=== PATIENT | female | born 1940 | race Caucasian/White ===

== ENCOUNTER 2021-03-29 05:20 | Emergency (ER) | payer OTHER ==
[~2021-03-29] VITALS: Ht 167.6 cm; Wt 99.8 kg
[2021-03-29 05:42] LABS: ABSOLUTE BASOPHILS 0.1 thou/uL (0.0-0.2); ABSOLUTE EOSINOPHILS 0.3 thou/uL (0.0-0.7); ABSOLUTE MONOCYTES 0.8 thou/uL (0.0-1.2); ABSOLUTE NEUTROPHILS 7.3 thou/uL (1.6-8.1); BASOPHILS 0.6 %; EOSINOPHILS 2.3 %; HEMATOCRIT 41.5 % (37.0-47.0); HEMOGLOBIN 13.7 gm/dL (12.0-15.0); LYMPHOCYTES 26.5 %; MCH 30.9 pg (26.0-34.0); MCHC 32.9 g/dL (28.0-37.0); MCV 93.6 fL (80.0-100.0); MONOCYTES 7.3 %; MPV 7.5 fl. (7.2-11.1); NUCLEATED RBCS 0 /100WBC; PLATELET COUNT* 265 thou/uL (150-400); POLYS 63.3 %; RBC 4.43 mil/uL (4.20-5.00); RDW-CV 12.9 % (10.5-14.5); WBC 11.5 thou/uL (4.0-11.0)
[2021-03-29] MEDS ORDERED: ATENOLOL 25 MG25 M1 PO (05:49)
[2021-03-29] MEDS ORDERED: COZAAR 25 MG TA25 M1 PO (05:49)
[2021-03-29 05:50] LABS: CALCIUM 8.9 mg/dL (8.5-10.1); POTASSIUM 3.8 mmol/L (3.5-5.1)
[2021-03-29] MEDS ORDERED: DESVENLAFAXINE50 MG PO (05:50)
[2021-03-29] MEDS ORDERED: KLOR-CON 1010 MEQ PO (05:50)
[2021-03-29] MEDS ORDERED: FAMOTIDINE 40 M40 M1 PO (05:51)
[2021-03-29] MEDS ORDERED: VERAPAMIL ER240 M1 PO (05:51)
[2021-03-29] MEDS ORDERED: RISPERDAL0.5 MG PO (05:52)
[2021-03-29] MEDS ORDERED: AMBIEN5 MG PO (05:52)
[2021-03-29] MEDS ORDERED: ROSUVASTATIN CA20 MG PO (05:53)
[2021-03-29 05:55] LABS: ALBUMIN 3.8 g/dL (3.4-5.0); TOTAL BILIRUBIN 0.7 mg/dL (<0.1-1.0); TOTAL PROTEIN 7.4 g/dL (6.4-8.2)
[2021-03-29 07:11] LABS: URINE BILIRUBIN NEGATIVE (Negative); URINE BLOOD NEGATIVE (Negative); URINE CLARITY CLEAR; URINE COLOR YELLOW; URINE GLUCOSE-RANDOM NEGATIVE (Negative); URINE KETONES NEGATIVE (Negative); URINE LEUKOCYTES-REFLEX NEGATIVE (Negative); URINE NITRITE-REFLEX NEGATIVE (Negative); URINE PROTEIN NEGATIVE (Negative); URINE UROBILINOGEN 0.2 E.U./dl (0.2-1.0)
[2021-03-29] MEDS ORDERED: ZOFRAN ODT4 MG DISSOLVE (07:36)
[2021-03-29] MEDS ORDERED: PHENERGAN 25 MG25 M1 PO (07:42)
--- NOTE | 2021-03-29 07:54 | EKG ---
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
[2021-03-29 07:59] VITALS: BP 173/75
== END 2021-03-29 07:59 | disposition home or self-care (01) ==
LOC: M.ERS 05:20
PROVIDERS: Emergency Medicine
DX: R19.7 Diarrhea, unspecified (principal); Z20.822 Contact with and (suspected) exposure to COVID-19; R11.10 Vomiting, unspecified; R10.13 Epigastric pain; I10 Essential (primary) hypertension; Z79.899 Other long term (current) drug therapy; Z91.040 Latex allergy status